=== PATIENT | male | born 1995 | race Caucasian/White ===

== ENCOUNTER 2022-09-06 13:24 | Emergency (ER) | payer OTHER ==
[~2022-09-06] VITALS: Ht 172.7 cm; Wt 65.8 kg
[~2022-09-06 13:24] MED LIST: Amoxicillin500 MG PO; ONDA4 PO; POLTRIOPSO OD; PROM25 PO; Percocet 10-321 EACH PO; Zofran Odt4 MG SL
[2022-09-06 14:50] LABS: Albumin, Blood 4.9 g/dL (3.4-5.0); Albumin/Globulin Ratio 1.5 (0.8-1.8); Bilirubin, Total 0.9 mg/dL (0.1-1.0); Bun/Creatinine Ratio 13.6 (12.0-20.0); Calcium, Blood 9.8 mg/dL (8.5-10.1); Creatinine, Blood 0.81 mg/dL (0.60-1.20); Globulin, Blood 3.3 g/dL (2.2-4.0); Potassium, Blood 4.4 mmol/L (3.5-5.5); Total Protein, Blood 8.2 g/dL (6.4-8.2)
[2022-09-06 15:13] LABS: BASOPHILS ABSOLUTE AUTO 0.03 K/mm3 (0.00-0.23); BASOPHILS PERCENT AUTO 0 % (0-2); EOSINOPHILS PERCENT AUTO 0 % (0-6); Hematocrit 45.9 % (37.0-53.0); Hemoglobin 16.2 g/dL (13.5-17.5); IMMATURE GRAN ABSOLUTE AUTO 0.03 K/mm3 (0.00-0.10); IMMATURE GRAN PERCENT AUTO 0 % (0-1); LYMPHOCYTES ABSOLUTE AUTO 0.25 K/mm3 (0.84-5.20); LYMPHOCYTES PERCENT AUTO 3 % (21-46); MONOCYTES ABSOLUTE AUTO 0.67 K/mm3 (0.16-1.47); MONOCYTES PERCENT AUTO 9 % (4-13); Mean Corpuscular HGB Conc 35.3 g/dL (31.5-36.5); Mean Corpuscular Volume 85 fL (80-100); Mean Platelet Volume 9.9 fL (9.1-12.4); NEUTROPHILS ABSOLUTE AUTO 6.78 K/mm3 (1.96-9.15); NEUTROPHILS PERCENT AUTO 87 % (41-73); Platelet Count 206 K/mm3 (150-400); RDW Standard Deviation 36.9 fL (35.1-46.3); White Blood Cell Count 7.76 K/mm3 (4.00-11.30)
[2022-09-06 17:51] LABS: Influenza A, PCR NEGATIVE (NEGATIVE); Influenza B, PCR NEGATIVE (NEGATIVE); Resp Syncytial Virus, PCR NEGATIVE (NEGATIVE)
[2022-09-06 18:37] LABS: SARS-Cov-2 (COVID-19) PCR, MMC POSITIVE (NEGATIVE)
== END 2022-09-06 19:25 | disposition home or self-care (01) ==
LOC: ER 13:24
PROVIDERS: Physician Assistant
DX: U07.1 COVID-19 (principal); F17.210 Nicotine dependence, cigarettes, uncomplicated; Z79.899 Other long term (current) drug therapy
CPT/HCPCS: 0241U; 36415; 80053; 83690; 85025; J1885; J2405; J7030

== ENCOUNTER 2023-05-06 01:25 | Emergency (ER) | payer OTHER ==
[~2023-05-06] VITALS: Ht 172.7 cm; Wt 74.8 kg
[2023-05-06 03:00] VITALS: BP 103/65
== END 2023-05-06 06:11 | disposition home or self-care (01) ==
LOC: ER 01:25
DX: F10.129 Alcohol abuse with intoxication, unspecified (principal); F17.210 Nicotine dependence, cigarettes, uncomplicated
CPT/HCPCS: 99283; A9270